=== PATIENT | female | born 1965 | race Asian ===

== ENCOUNTER 2019-12-24 13:46 | Emergency (ER) | payer OTHER, SELFPAY ==
[~2019-12-24] VITALS: Ht 154.9 cm; Wt 40.8 kg
[2019-12-24 14:00] VITALS: Ht 154.9 cm; Wt 40.8 kg
[2019-12-24 15:15] VITALS: BP 127/81
== END 2019-12-24 15:15 | disposition home or self-care (01) ==
LOC: ED 13:46
DX: R51 Headache (principal); Z20.828 Contact with and (suspected) exposure to other viral communicable diseases; Z88.8 Allergy status to other drugs, medicaments and biological substances
CPT/HCPCS: U0003-CS